=== PATIENT | male | born 1975 | race Caucasian/White ===

== ENCOUNTER → 2017-01-10 | Outpatient (CLI) | payer SELFPAY ==
--- NOTE | 2017-01-10 18:18 | PN ---
DATE OF SERVICE: 01/10/2017 This patient is a 41-year-old gentleman who has been followed in the sleep center for treatment of obstructive sleep apnea-hypopnea syndrome. 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 I discussed results of his diagnostic sleep study with the patient in detail. He has severe sleep apnea/hypopnea index of 32 with oxygen desaturation to 78%. Patient was started on treatment with CPAP, without auto-set regimen with a pressure between 5 and 13. Patient showed usage of the machine for 24 out of 30 nights for more than 4 hours. Average usage is 7 hours. Total usage is 25 out of 30 nights. Leak is 28 L/minute, which is borderline. Apnea-hypopnea index reading from the machine is only 1.5, which is in normal range. [place] Sleepiness Scale is 1. MEDICATIONS: 1. Januvia. 2. Simvastatin. 3. Lisinopril with hydrochlorothiazide. 4. ( ) 5. Glimepiride. 6. Baby aspirin. 7. Some vitamin supplements. During physical exam, patient in no distress. VITAL SIGNS: BP 108/72, HR 64, RR 16. Height 5 feet 11 inches. Weight 276. BMI 38.4. Temperature 98.0. Oxygen saturation at room air 97%. HEENT: PERRLA, EOMI. Evaluation of oropharynx showed tongue protrudes midline; moderately low position of soft palate. NECK: Supple. No JVD. Thyroid is not palpable. LUNGS: Clear to percussion and to auscultation. Good air exchange. No wheezing or rhonchi. HEART: S1, S2 regular. No murmurs, gallops or rubs. ABDOMEN: Obese. EXTREMITIES: No clubbing or cyanosis. BUSINESS SERVICES SPECIALIST SALES: Awake, alert, and oriented x3. Cranial nerves 2 to 7 intact. There is no fasciculation or atrophy noted. No focal deficits observed. IMPRESSION: 1. Severe obstructive sleep apnea-hypopnea syndrome by results of home sleep study from 03/08/16, under control with auto PAP with a range of pressure from 5 to 13 cm of water; average pressure is 11 cm of water. 2. Hypertension. 3. Hyperlipidemia. 4. Diabetes. 5. Obesity. 6. Status post tonsillectomy. PLAN: 1. Continue treatment with CPAP every night. 2. Losing weight. 3. Sleep hygiene with regular time in bed for at least 8 hours. 4. No driving if feeling any sleepiness. Patient is aware of civil and criminal liability for unsafe driving. 5. I would recommend maintenance of wakefulness test to objectively document patient's normal alertness during the day. Thank you very much for allowing me to participate in the management of your patient. Sincerely, Juan Hernandez MD, PhD, FAASM. Diplomat of [place] [employer], Sleep Medicine Board by [place] [employer], [place] [employer]
== END | disposition home or self-care (01) ==
LOC: SLEEP 13:22
PROVIDERS: ATTEND Internal Medicine
DX: G47.33 Obstructive sleep apnea (adult) (pediatric) (principal); I10 Essential (primary) hypertension; E78.5 Hyperlipidemia, unspecified; E11.9 Type 2 diabetes mellitus without complications; E66.9 Obesity, unspecified; Z90.89 Acquired absence of other organs; Z79.82 Long term (current) use of aspirin; Z79.899 Other long term (current) drug therapy

== ENCOUNTER → 2017-12-25 | Outpatient (CLI) | payer BC ==
--- NOTE | 2017-12-26 09:12 | MR ---
EXAMINATION TYPE: MR wrist LT wo con DATE OF EXAM: 12/25/2017 COMPARISON: NONE HISTORY: Pain Left Wrist x8 months Standard multiplanar, multisequence MRI departmental protocol Multiplanar, multisequence images of the left wrist were acquired. FINDINGS: Bone marrow signal is homogeneous without evidence for fracture or osseous lesion. Radiocarpal and intercarpal joint spaces are well-preserved. Triangular fibrocartilage complex is intact without evidence for tear or partial tear. Scapholunate ligament is intact. Intercarpal ligaments are also intact. Small ganglion cyst adjacent to the pisiform, measuring 6.4 mm. IMPRESSION: Small ganglion cyst otherwise unremarkable study.
== END | disposition home or self-care (01) ==
LOC: RADMRIMAIN 17:58
PROVIDERS: ATTEND Family Medicine
DX: M67.432 Ganglion, left wrist (principal)

== ENCOUNTER 2017-12-29 00:22 | Emergency (ER) | payer BC ==
[2017-12-29 00:33] VITALS: TEMP 97.4
--- NOTE | 2017-12-29 01:09 | ED ---
Back Pain HPI - General Chief Complaint: Back Pain/Injury Stated Complaint: back pain Time Seen by Provider: 12/29/17 00:59 Source: patient, RN notes reviewed Limitations: no limitations - History of Present Illness Initial Comments: This is a 42-year-old male who presents to the emergency department with chief complaint of low back injury. Patient states that at around 6 PM he was sitting in a chair pulling weeds. He states that he bent over and felt a sudden stretching along his low back. He states that he sat back up into the chair and still felt a stretching sensation. He states he was able to get up out of the chair and make it back into the house. He states that he then used a cane to ambulate to the bathroom. From there he attached a TENS unit and applied heat. This did not seem to help the back pain. He states he then laid on the ground with a pillow under his back and this did seem to help. He states that he was then unable to get up off the ground. He called EMS and was transported to the emergency department. Patient was given 10 mg of morphine while in the ambulance. Patient denies any saddle paresthesias or loss of bladder or bowel function. Denies numbness or tingling or radiation of pain down the legs. Denies fevers or chills, abdominal pain, nausea or vomiting. - Related Data Previous Rx's Medication Instructions Recorded Cyclobenzaprine [Flexeril] 10 mg PO TID #12 tab 12/29/17 Ibuprofen 600 mg PO Q6HR #30 tablet 12/29/17 Review of Systems ROS Statement: Those systems with pertinent positive or pertinent negative responses have been documented in the HPI. ROS Other: All systems not noted in ROS Statement are negative. Past Medical History Past Medical History: Diabetes Mellitus, Hypertension History of Any Multi-Drug Resistant Organisms: None Reported Past Surgical History: Tonsillectomy Past Psychological History: No Psychological Hx Reported Smoking Status: Former smoker Past Alcohol Use History: Occasional Past Drug Use History: None Reported General Exam - General Exam Comments Initial Comments: General: Awake and alert, well-developed; in no apparent distress. Patient appears uncomfortable and in significant pain. HEENT: Head atraumatic, normocephalic. Pupils are equal, round and reactive to light. Extraocular movements intact. Oropharynx moist without erythema or exudate. Neck: Supple. Normal ROM. Cardiovascular: Regular rate and rhythm. No murmurs, rubs or gallops. Chest symmetrical. Respiratory: Lungs clear to auscultation bilaterally. No wheezes, rales or rhonchi. Normal respiratory effort with no use of accessory muscles. Musculoskeletal: Normal ROM of spine. There is tenderness along the right lumbar paraspinal muscles. Sensation is intact. Pedal pulses are 2+ equal and palpable bilaterally. Skin: [place], warm and dry without rashes or lesions. Neurological: Alert and oriented x3. CN II-XII grossly intact. Speech is fluent and answers are appropriate. No focal neuro deficits. Psychiatric: Normal mood and affect. No overt signs of depression or anxiety noted. Limitations: no limitations Course Vital Signs 12/29/17 12/29/17 00:28 02:14 Temperature 97.4 F L Pulse Rate 75 72 Respiratory 19 16 Rate Blood Pressure 149/79 135/82 O2 Sat by Pulse 99 97 Oximetry Medical Decision Making - Medical Decision Making This is a 42-year-old male who presented to the emergency department chief complaint of low back injury. Patient states that he was leaning forward picking weeds earlier today. He felt a stretching burning sensation across his low back. He states that he has difficulty moving due to the pain. Denies saddle paresthesias or loss of bladder or bowel function. Denies numbness or tingling or radiation of pain in the legs. Patient is tender along the right lumbar paraspinal muscles. X-ray of the lumbar spine was obtained revealed abnormalities. Patient suffering from lumbar strain. He'll be started on NSAIDs and muscle relaxers. Findings and plan were discussed with patient. He is in agreement and voices understanding. All questions answered. - Radiology Data Radiology results: report reviewed, image reviewed X-ray lumbar spine impression: Normal lumbar spine. Disposition Clinical Impression: Strain of lumbar region Disposition: HOME SELF-CARE Condition: Good Instructions: Acute Low Back Pain (ED), Low Back Strain (ED), Lower Back Exercises (ED) Additional Instructions: Please take medications as prescribed. Please follow up with primary care provider within 1-2 days. Return to emergency department if symptoms should worsen or any concerns arise. Prescriptions: Cyclobenzaprine [Flexeril] 10 mg PO TID #12 tab Ibuprofen 600 mg PO Q6HR #30 tablet Is patient prescribed a controlled substance at d/c from ED?: No Referrals: Trupti Flowers DO [Primary Care Provider] - 1-2 days Time of Disposition: 03:11
--- NOTE | 2017-12-29 01:48 | XR ---
EXAMINATION TYPE: XR lumbar spine 2 or 3V DATE OF EXAM: 12/29/2017 COMPARISON: NONE HISTORY: Back pain TECHNIQUE: 3 views FINDINGS: Vertebra have normal spacing and alignment. Posterior elements are intact. Sacroiliac joint s appear normal. IMPRESSION: Normal lumbar spine.
[2017-12-29 02:15] VITALS: BP 135/82; PULSE 72; RESP 16
[2017-12-29] MEDS ORDERED: KETOROLAC 30 MG/ML 1 ML VIAL IVP STA (02:43)
[2017-12-29] MEDS ORDERED: ORPHENADRINE 30 MG/ML 2 ML VIAL IVP STA (02:43)
== END 2017-12-29 03:40 | disposition home or self-care (01) ==
LOC: EC 00:22
DX: S39.012A Strain of muscle, fascia and tendon of lower back, initial encounter (principal); Z87.891 Personal history of nicotine dependence; X50.1XXA Overexertion from prolonged static or awkward postures, initial encounter; Y93.H2 Activity, gardening and landscaping
CPT/HCPCS: 72100; 99283; 96374; 96375; J2360; J1885

== ENCOUNTER → 2020-09-02 | Outpatient (CLI) | payer OTHER ==
--- NOTE | 2020-09-03 10:41 | US ---
EXAMINATION TYPE: US scrotum with doppler. Grayscale and color Doppler Duplex imaging performed of tirso jacobsen scrotum. DATE OF EXAM: 09/02/2020 COMPARISON: NONE CLINICAL HISTORY: N50.812 left testicle pain. Pt states an "achy" feeling inferior left testicle EXAM MEASUREMENTS: TESTICLES: Right Testicle: 4.2 x 2.1 x 3.1 cm Left Testicle: 4.0 x 2.0 x 3.6 cm EPIDIDYMIS HEAD: Right Epididymis: 1.2 cm Left Epididymis: 1.3 cm Doppler performed to assess for testicular vascularity; bilateral color flow and waveforms are seen. Presence of hydroceles: No Presence of varicoceles: Yes, inferior to left testicle in area of pt's concern Testicular echotexture is homogenous and symmetric. IMPRESSION: Varicocele is noted on the left.
== END | disposition home or self-care (01) ==
LOC: RADUSWWP 16:51
PROVIDERS: ATTEND Family Medicine
DX: I86.1 Scrotal varices (principal)
CPT/HCPCS: 76870; 93975

== ENCOUNTER 2025-01-26 13:55 | Inpatient (IN) | payer OTHER ==
--- NOTE | 2025-01-26 14:31 | ED ---
Back Pain HPI - General Source: patient, family, RN notes reviewed Mode of arrival: wheelchair Limitations: no limitations <Josee Moncada - Last Filed: 01/26/25 14:33> <Tao Graves - Last Filed: 01/26/25 17:26> - General Stated Complaint: Spine pain, back pain, Leg pain L Time Seen by Provider: 01/26/25 14:28 - History of Present Illness Initial Comments: Quick note: 50-year-old male presented the ER for evaluation of back pain. Mikel rasmussen is following up with Dr. Cobb for back pain. Patient states on October 13, 2024 patient had an injury at work. He is currently working under a work comp case. Over the past couple of weeks he has had increase in pain. Patient admits to saddle paresthesias and scrotal pain. He states it feels like they are "sleeping". He states laying flat improves pain. Sitting or standing is extremely uncomfortable. Patient having difficulty ambulating. Patient admits to "pain sweats". Denies history of IV drug abuse. Patient denies any urinary or bowel incontinence/retention.Patient sent by orthopedics for further evaluation. Recent MRI showing severe disc bulge per . (Josee Moncada) Dictation was produced using [employer] dictation software. please excuse any grammatical, word or spelling errors. Chief Complaint: 50-year-old male with acute on chronic back pain History of Present Illness: Patient 50-year-old male presents emergency department for acute on chronic back pain suffered back injury back in October. Since then has been progressively getting worse. Has had CT and MRIs with soft tissue injuries. Went to Ortho appointment today had an x-ray and told to come to the ER. Patient denies any saddle anesthesia. States that whenever she stands he has radiating back pain down bilateral legs. The ROS documented in this emergency department record has been reviewed and confirmed by me. Those systems with pertinent positive or negative responses have been documented in the HPI. All other systems are other negative and/or noncontributory. (Tao Graves) - Related Data Allergies Allergy/AdvReac Type Severity Reaction Status Date / Time walnut Allergy Anaphylaxis Verified 01/26/25 17:25 Review of Systems ROS Other: All systems not noted in ROS Statement are negative. <Josee Moncada - Last Filed: 01/26/25 14:33> ROS Other: All systems not noted in ROS Statement are negative. <Tao Graves - Last Filed: 01/26/25 17:26> ROS Statement: Those systems with pertinent positive or pertinent negative responses have been documented in the HPI. Past Medical History Past Medical History: Diabetes Mellitus, Hypertension History of Any Multi-Drug Resistant Organisms: None Reported Past Surgical History: Tonsillectomy Past Psychological History: No Psychological Hx Reported Past Alcohol Use History: Occasional Past Drug Use History: None Reported <Josee Moncada - Last Filed: 01/26/25 14:33> General Exam <Josee Moncada - Last Filed: 01/26/25 14:33> <Tao Graves - Last Filed: 01/26/25 17:26> - General Exam Comments Initial Comments: Visual Physical Exam Vital signs reviewed General: Anxious, in pain no signs of acute respiratory distress. Head: Normocephalic, atraumatic Eyes: PERRLA, EOMI ENT: Airway patent Chest: Nonlabored breathing Skin: No visual rash, normal skin tone Neuro: Alert and oriented 3 Musculoskeletal: No gross abnormalities (Josee Moncada) PHYSICAL EXAM: General Impression: Alert and oriented x3, not in acute distress HEENT: Normocephalic atraumatic, extra-ocular movements intact, pupils equal and reactive to light bilaterally, mucous membranes moist. Cardiovascular: Heart regular rate and rhythm Chest: Able to complete full sentences, no retractions, no tachypnea Abdomen: abdomen soft, non-tender, non-distended, no organomegaly Musculoskeletal: Pulses present and equal in all extremities, no peripheral edema Motor: no focal deficits noted Neurological: CN II-XII grossly intact, no focal motor or sensory deficits noted Skin: Intact with no visualized rashes Psych: Normal affect and mood (Tao Graves) Course Vital Signs 01/26/25 01/26/25 14:28 17:05 Temperature 98.2 F 98 F Pulse Rate 120 H 77 Respiratory 22 16 Rate Blood Pressure 115/87 133/94 O2 Sat by Pulse 96 96 Oximetry Medical Decision Making <Josee Moncada - Last Filed: 01/26/25 14:33> - Lab Data Result diagrams: 01/26/25 14:58 01/26/25 14:58 <Tao Graves - Last Filed: 01/26/25 17:26> - Medical Decision Making I performed the quick note portion of this chart. Electronically signed by Josee Moncada PA-C (Josee Moncada) Was pt. sent in by a medical professional or institution ([facility], ECMO SPECIALIST, urgent care, hospital, or prison...) When possible be specific @ -No Did you speak to anyone other than the patient for history (EMS, parent, family, police, friend...)? What history was obtained from this source @ -No Did you review nursing and triage notes (agree or disagree)? Why? @ -I reviewed and agree with nursing and triage notes Were old charts reviewed (outside hosp., previous admission, EMS record, old EKG, old radiological studies, urgent care reports/EKG's, prison records)? Report findings @ -No old charts were reviewed Differential Diagnosis (chest pain, altered mental status, abdominal pain women, abdominal pain men, vaginal bleeding, musculoskeletal, weakness, fever, dyspnea, syncope, headache, dizziness, GI bleed, back pain, seizure, CVA, palpatations, mental health)? @ -Differential Back Pain: Strain, zoster, cauda equina syndrome, epidural abscess, vertebral osteomyelitis, discitis, fracture, subluxation, disc herniation, DJD, spinal stenosis, dissection, AAA, pancreatitis, peptic ulcer disease, pyelonephritis, kidney stone, this is not meant to be an all-inclusive list. EKG interpreted by me (3pts min.). @ -None done X-rays interpreted by me (1pt min.). @ -None done CT interpreted by me (1pt min.). @ -None done U/S interpreted by me (1pt. min.). @ -None done What testing was considered but not performed or refused? (CT, X-rays, U/S, labs)? Why? @ -None What meds were considered but not given or refused? Why? @ -None Was smoking cessation discussed for >3mins.? @ -No Were there social determinants of health that impacted care today? How? (Homelessness, low income, unemployed, alcoholism, drug addiction, transportation, low edu. Level, literacy, decrease access to med. care, fdc, rehab)? @ -No Was there de-escalation of care discussed even if they declined (Discuss DNR or withdrawal of care, Hospice)? DNR status @ -No What co-morbidities impacted this encounter? (DM, HTN, Smoking, COPD, CAD, Cancer, CVA, ARF, Chemo, Hep., AIDS, mental health diagnosis, sleep apnea, morbid obesity)? @ -None Was patient admitted / discharged? Hospital course, mention meds given and route, prescriptions, significant lab abnormalities, going to OR and other pertinent info. @ -50-year-old male sent in from Ortho clinic for concerns of back pain. Patient initially injured his back in October has been having back pain ever since. He had MRI earlier this month that showed abnormal disc bulge. According to nurse practitioner that saw him at [facility] she sent him to the ER for urgent evaluation due to pain rating to the scrotum and some constipation. He did however have a bowel movement within the last 48 hours. Does not have any retention or saddle anesthesia. Vital signs stable. Patient well-appearing at rest on the stretcher. [facility] They are agreeable to evaluate patient however they requested patient be admitted to medicine. Patient is agreeable with this plan. Case discussed with hospitalist for admission. Did you discuss the management of the patient with other professionals (professionals i.e. , PA, ECMO SPECIALIST, lab, RT, psych nurse, social media director, recovery unit operator, teacher, custodial officer, corrections caseworker)? Give summary @ -See above Was critical care preformed (if so, how long)? @ -No Undiagnosed new problem with uncertain prognosis? @ -No Drug Therapy requiring intensive monitoring for toxicity (Heparin, Nitro, Insulin, Cardizem)? @ -No Were any procedures done? @ -No Diagnosis/symptom? Acute, or Chronic, or Acute on Chronic? Uncomplicated (without systemic symptoms) or Complicated (systemic symptoms)? @ -Acute on chronic back pain Side effects of treatment? @ -No Exacerbation, Progression, or Severe Exacerbation? @ -No Poses a threat to life or bodily function? How? (Chest pain, [place], ID, pneumonia, PE, COPD, DKA, ARF, appy, cholecystitis, CVA, Diverticulitis, Homicidal, Suicidal, threat to staff... and all critical care pts) @ -yes (Tao Graves) - Lab Data Lab Results 01/26/25 01/26/25 Range/Units 14:58 14:58 WBC 8.40 (4.50-10.00) 10*3/uL RBC 5.19 (4.40-5.60) 10*6/uL Hgb 15.6 (13.0-17.0) g/dL Hct 46.0 (39.6-50.0) % MCV 88.6 (80.0-97.0) fL MCH 30.1 (27.0-32.0) pg MCHC 33.9 (32.0-37.0) g/dL Plt Count 342 (140-440) 10*3/uL MPV 8.0 L (9.5-12.2) fL Immature Gran % (Auto) 0.4 % Neutrophils % 71.5 % Lymphocytes % 18.7 % Monocytes % 7.9 % Eosinophils % 1.1 % Basophils % 0.4 % Immature Gran # 0.03 (0.00-0.04) 10*3/uL Neutrophils # 6.02 (1.80-7.70) 10*3/uL Lymphocytes # 1.57 (0.90-5.00) 10*3/uL Monocytes # 0.66 (0.20-1.00) 10*3/uL Eosinophils # 0.09 (0.04-0.35) 10*3/uL Basophils # 0.03 (0.00-0.10) 10*3/uL Sodium 137 (137-145) mmol/L Potassium 3.7 (3.5-5.1) mmol/L Chloride 98 (98-107) mmol/L Carbon Dioxide 24 (22-30) mmol/L Anion Gap 15 mmol/L BUN 13 (9-20) mg/dL Creatinine 0.71 (0.66-1.25) mg/dL Est GFR (CKD-EPI)AfAm >90 (>60 ml/min/1.73 sqM) Est GFR (CKD-EPI)NonAf >90 (>60 ml/min/1.73 sqM) Glucose 134 H (74-99) mg/dL Calcium 11.1 H (8.4-10.2) mg/dL Total Bilirubin 1.0 (0.2-1.3) mg/dL AST 40 (17-59) U/L ALT 62 H (4-49) U/L Alkaline Phosphatase 75 (38-126) U/L Total Protein 7.2 (6.3-8.2) g/dL Albumin 4.6 (3.5-5.0) g/dL Disposition <Josee Moncada - Last Filed: 01/26/25 14:33> Decision Time: 16:45 <Tao Graves - Last Filed: 01/26/25 17:26> Clinical Impression: Back pain Disposition: ADMITTED IP TO THIS [facility] Condition: Fair Referrals: Trupti Flowers DO [Primary Care Provider] - 1-2 days
[2025-01-26 15:07] LABS: Basophils # (A) 0.03 10*3/uL (0.00-0.10); Basophils % (A) 0.4 %; Eosinophils # (A) 0.09 10*3/uL (0.04-0.35); Eosinophils % (A) 1.1 %; HGB 15.6 g/dL (13.0-17.0); Lymphocytes # (A) 1.57 10*3/uL (0.90-5.00); Lymphocytes % (A) 18.7 %; MCH 30.1 pg (27.0-32.0); MCHC 33.9 g/dL (32.0-37.0); MCV 88.6 fL (80.0-97.0); Monocytes # (A) 0.66 10*3/uL (0.20-1.00); Monocytes % (A) 7.9 %; Neutrophils # (A) 6.02 10*3/uL (1.80-7.70); Neutrophils % (A) 71.5 %; Platelet Count 342 10*3/uL (140-440); RBC 5.19 10*6/uL (4.40-5.60); RDW 13.8 % (11.5-14.5)
[2025-01-26 15:37] LABS: ALT 62 U/L (4-49); AST 40 U/L (17-59); African American GFR (CKD) >90 (>60 ml/min/1.73 sqM); Albumin 4.6 g/dL (3.5-5.0); Alkaline Phosphatase 75 U/L (38-126); Anion Gap 15 mmol/L; Blood Urea Nitrogen 13 mg/dL (9-20); Calcium 11.1 mg/dL (8.4-10.2); Carbon Dioxide 24 mmol/L (22-30); Chloride 98 mmol/L (98-107); Glucose 134 mg/dL (74-99); Non-African American GFR(CKD) >90 (>60 ml/min/1.73 sqM); Potassium 3.7 mmol/L (3.5-5.1); Sodium 137 mmol/L (137-145); Total Protein 7.2 g/dL (6.3-8.2)
[2025-01-26] MEDS ORDERED: NALOXONE 0.4 MG/ML 1 ML VIAL IV PRN (17:22)
[2025-01-26] MEDS: SODIUM CHLORIDE 0.9% 1,000 ML IV SCH (17:43)
[2025-01-26] MEDS: BACLOFEN 10 MG TAB PO PRN (18:43)
[2025-01-26] MEDS: GABAPENTIN 300 MG CAP PO PRN (23:32)
[2025-01-27 01:09] LABS: Glucose,Whole Blood 155 mg/dL (70-110)
[2025-01-27] MEDS: MORPHINE SULFATE 4 MG/ML SYRINGE IV PRN (05:24)
[2025-01-27] MEDS: ATORVASTATIN 10 MG TAB PO SCH (08:20)
[2025-01-27] MEDS: DULoxetine HCL 60 MG CAPSULE.DR PO SCH (08:20)
[2025-01-27] MEDS: ASPIRIN 81 MG PO SCH (08:20)
[2025-01-27] MEDS: GLIMEPIRIDE 4 MG TAB PO SCH (08:57)
[2025-01-27] MEDS: LISINOPRIL-HCTZ 10-12.5 MG 1 EACH TAB PO SCH (08:57)
[2025-01-27] MEDS: PIOGLITAZONE 30 MG TAB PO SCH (08:58)
[2025-01-27] MEDS ORDERED: LISINOPRIL-HCTZ 20-25 MG 1 EACH TAB PO SCH (09:00)
[2025-01-27] MEDS ORDERED: KETOROLAC 15 MG/ML 1 ML VIAL IVP PRN (12:32)
--- NOTE | 2025-01-27 12:52 | P.HPIM ---
History of Present Illness Patient is 50-year-old male came in with severe back pain in the lower back in the lumbosacral area with crampy and tingling numbness radiating to the left buttock and posterior thigh. Patient denies any weakness patient is unable to ambulate. Patient had an MRI which showed disc bulge as per the . Patient was evaluated by final surgeon Dr. Cobb and patient apparently will be going for surgery tomorrow for lower back pain. Patient is presently on morphine which will be continued. Patient is mildly hypotensive does use lisinopril hydrochlorothiazide as an outpatient which will be held. 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 REVIEW OF SYSTEMS: All other systems are negative except those mentioned in the HPI PHYSICAL EXAMINATION: GENERAL: The patient is alert and oriented x3, not in any acute distress. Well developed, well nourished. HEENT: Pupils are round and equally reacting to light. EOMI. No scleral icterus. No conjunctival pallor. Normocephalic, atraumatic. No pharyngeal erythema. No thyromegaly. CARDIOVASCULAR: S1 and S2 present. No murmurs, rubs, or gallops. PULMONARY: Chest is clear to auscultation, no wheezing or crackles. ABDOMEN: Soft, nontender, nondistended, normoactive bowel sounds. No palpable organomegaly. MUSCULOSKELETAL: No joint swelling or deformity. Back pain deferred to orthopedic surgery EXTREMITIES: No cyanosis, clubbing, or pedal edema. NEUROLOGICAL: Gross neurological examination did not reveal any focal deficits. SKIN: No rashes. Assessment and plan -Chronic back pain: I do not have the MRI reports at this time patient appears to have severe degenerative disc disease. Patient will undergo surgery tomorrow - Hypertension patient is expected to have low blood pressures hold off on antihypertensive medications at this time - Type 2 diabetes mellitus patient will be started on sliding scale insulin holding off any oral hypoglycemic agents at this time - Depression DVT prophylaxis: Patient will need DVT prophylaxis pharmacologically we will start him on Lovenox or subcutaneous heparin after surgery. Past Medical History Past Medical History: Diabetes Mellitus, Hypertension History of Any Multi-Drug Resistant Organisms: None Reported Past Surgical History: Tonsillectomy Past Psychological History: No Psychological Hx Reported Past Alcohol Use History: Occasional Past Drug Use History: None Reported Medications and Allergies Home Medications Medication Instructions Recorded Confirmed Type Aspirin EC [Ecotrin Low Dose] 81 mg PO DAILY 01/26/25 01/26/25 History Baclofen [Lioresal] 20 mg PO BID PRN 01/26/25 01/26/25 History DULoxetine HCL [Cymbalta] 60 mg PO DAILY 01/26/25 01/26/25 History Dulaglutide [Trulicity] 1.5 mg SQ SA 01/26/25 01/26/25 History Gabapentin 300 mg PO BID PRN 01/26/25 01/26/25 History HYDROcodone/APAP 7.5-325MG [[place] 1 - 2 tab PO Q6H PRN 01/26/25 01/26/25 History 7.5-325] Lisinopril-Hctz 20-25 mg 1 tab PO DAILY 01/26/25 01/26/25 History [Zestoretic 20-25] Mv-Min/Folic/K1/Lycopen/Lutein 1 tab PO DAILY 01/26/25 01/26/25 History [Centrum Silver Men Tablet] Pioglitazone HCl/Glimepiride 1 tab PO DAILY 01/26/25 01/26/25 History [Pioglitazone-Glimepiride 30-4] Simvastatin [Zocor] 20 mg PO DAILY 01/26/25 01/26/25 History Vitamin B Complex 1 cap PO DAILY 01/26/25 01/26/25 History Allergies Allergy/AdvReac Type Severity Reaction Status Date / Time walnut Allergy Anaphylaxis Verified 01/26/25 17:25 Physical Exam Vitals: Vital Signs Temp Pulse Resp BP Pulse Ox 01/27/25 12:00 98.2 F 84 18 115/76 98 01/27/25 08:01 98.1 F 93 117/72 98 01/27/25 05:27 98.0 F 76 20 114/77 99 01/26/25 23:35 98.1 F 95 18 126/90 96 01/26/25 18:40 98 F 91 18 121/70 98 01/26/25 17:05 98 F 77 16 133/94 96 01/26/25 14:28 98.2 F 120 H 22 115/87 96 Intake and Output 01/26/25 01/27/25 01/27/25 22:59 06:59 14:59 Output Total 5 Balance -5 Output: Post Void Residual 5 Results CBC & Chem 7: 01/26/25 14:58 01/26/25 14:58 Labs: Abnormal Lab Results - Last 24 Hours (Table) 01/26/25 01/26/25 01/27/25 Range/Units 14:58 14:58 01:07 MPV 8.0 L (9.5-12.2) fL Glucose 134 H (74-99) mg/dL POC Glucose (mg/dL) 155 H (70-110) mg/dL Calcium 11.1 H (8.4-10.2) mg/dL ALT 62 H (4-49) U/L
[2025-01-27] MEDS: SENNOSIDES-DOCUSATE SODIUM 1 EACH TAB PO SCH (13:14)
--- NOTE | 2025-01-27 13:49 | P.HPOR ---
History of Present Illness H&P Date: 01/27/25 Chief Complaint: back pain; LLE pain Patient is a 50-year-old male who presents to the ER as a transfer from Dr. Cobb office for evaluation of back pain. Patient states on October 13, 2024 he had an injury at work and is currently under work comp case. Patient states over the past month he has had increased pain in the low back with radiation down the left lower extremity extending from his left buttocks all the way into the left foot. Patient also admits having saddle anesthesia including scrotal pain. Patient states standing up straight or sitting up exacerbates the pain and lying down flat alleviates some of this pain. Patient denies any urinary or bowel incontinence. MRI of the lumbar spine does reveal disc herniation on the left side at L5-S1 as well as degenerative disc disease at this level. Patient states over the past 1 month the pain in the left lower extremity has worsened and he is having issues with daily activities. Patient denies any falls/traumas. Past Medical History Past Medical History: Diabetes Mellitus, Hypertension History of Any Multi-Drug Resistant Organisms: None Reported Past Surgical History: Tonsillectomy Past Psychological History: No Psychological Hx Reported Past Alcohol Use History: Occasional Past Drug Use History: None Reported Medications and Allergies Home Medications Medication Instructions Recorded Confirmed Type Aspirin EC [Ecotrin Low Dose] 81 mg PO DAILY 01/26/25 01/26/25 History Baclofen [Lioresal] 20 mg PO BID PRN 01/26/25 01/26/25 History DULoxetine HCL [Cymbalta] 60 mg PO DAILY 01/26/25 01/26/25 History Dulaglutide [Trulicity] 1.5 mg SQ SA 01/26/25 01/26/25 History Gabapentin 300 mg PO BID PRN 01/26/25 01/26/25 History HYDROcodone/APAP 7.5-325MG [[place] 1 - 2 tab PO Q6H PRN 01/26/25 01/26/25 History 7.5-325] Lisinopril-Hctz 20-25 mg 1 tab PO DAILY 01/26/25 01/26/25 History [Zestoretic 20-25] Mv-Min/Folic/K1/Lycopen/Lutein 1 tab PO DAILY 01/26/25 01/26/25 History [Centrum Silver Men Tablet] Pioglitazone HCl/Glimepiride 1 tab PO DAILY 01/26/25 01/26/25 History [Pioglitazone-Glimepiride 30-4] Simvastatin [Zocor] 20 mg PO DAILY 01/26/25 01/26/25 History Vitamin B Complex 1 cap PO DAILY 01/26/25 01/26/25 History Allergies Allergy/AdvReac Type Severity Reaction Status Date / Time walnut Allergy Anaphylaxis Verified 01/26/25 17:25 Physical Examination Inspection: Negative for any open fractures, significant erythema/ecchymosis or open wounds. Sensation: Altered sensation along the L5-S1 dermatome on the left lower extremity. Numbness along the left side of the scrotum. Sensation is equal, symmetric, by intact throughout the rest of the upper and lower extremities. Palpation: Moderate tenderness to patient over the left SI joint radiating into the left hip and extending down the posterior left lower extremity along the L5- S1 dermatome. Nontender on rest exam. Range of motion: Patient does have similar range of motion left lower extremity and hip and knees secondary referred pain to the low back. Full range of motion throughout the right lower extremity and bilateral upper extremities on exam. Motor: 4-/5 in resisted flexion/tension of the left hip and left knee. 4+/5 in right lower extremity and bilateral upper extremities. Neurovascular: Radial pulses intact, 2+ bilaterally. Cap refill under 3 seconds in digits of upper extremities. Special test: Negative Adiel bilaterally. Negative clonus bilaterally. Negative Homans bilaterally. Results - Labs Labs: Abnormal Lab Results - Last 24 Hours (Table) 01/26/25 01/26/25 01/27/25 Range/Units 14:58 14:58 01:07 MPV 8.0 L (9.5-12.2) fL Glucose 134 H (74-99) mg/dL POC Glucose (mg/dL) 155 H (70-110) mg/dL Calcium 11.1 H (8.4-10.2) mg/dL ALT 62 H (4-49) U/L H & H 01/26/25 Range/Units 14:58 Hgb 15.6 (13.0-17.0) g/dL Hct 46.0 (39.6-50.0) % Result Diagrams: 01/26/25 14:58 01/26/25 14:58 - Diagnostic results Lumbar MRI with/without contrast: report reviewed, image reviewed (MRI imaging of the lumbar spine has been reviewed. There is evident disc herniation at L5- S1 as well as lumbar spondylosis and degenerative disc disease at this level.) Assessment and Plan Assessment: 1. Left lower extremity radiculopathy; low back pain; L5-S1 disc herniation, left side; degenerative disc disease; lumbar spondylosis Plan: 1. Left lower extremity radiculopathy; low back pain; L5-S1 disc herniation, left side; degenerative disc disease; lumbar spondylosis - MRI imaging of the lumbar spine has been reviewed. There is evident disc herniation at L5-S1 as well as lumbar spondylosis and degenerative disc disease at this level. I did discuss the findings of the imaging with patient and family at bedside. I then did discuss the findings of the exam and imaging with my attending, Dr. Arnaldo zaman. At this time we are recommending orthopedic surgical intervention in the form of left-sided L5-S1 MIS TLIF. Patient and family were agreeable with this plan at bedside. Patient to be n.p.o. at midnight tonight. Pain medication as needed. We will continue to follow patient during stay in the hospital. Surgery has been scheduled for tomorrow, , 01/28/2025. 2. Appreciate medical management 3. Pain management -[place]; gabapentin; baclofen 4. DVT prophylaxis -mechanical 5. GI prophylaxis -senna 6. PT/OT -weightbearing as tolerated with walker and assistance as needed 7. Encourage incentive spirometer use Time with Patient: Less than 30
[2025-01-27] MEDS: INSULIN LISPRO (HumaLOG) 100 UNIT/ML 10 mL VL SQ SCH (17:26)
[2025-01-27 17:29] LABS: Glucose,Whole Blood 104 mg/dL (70-110)
[2025-01-27 20:40] LABS: Glucose,Whole Blood 127 mg/dL (70-110)
[2025-01-28] MEDS: HYDROcodone/APAP 10-325MG 1 EACH TAB PO PRN (00:12)
[2025-01-28 06:19] LABS: Glucose,Whole Blood 112 mg/dL (70-110)
[2025-01-28] MEDS ORDERED: TRANEXAMIC 1,000 MG/100ML-NACL 1,000 MG in SALINE 1 100ML.BAG IVPB PRN (10:56)
[2025-01-28 11:11] LABS: Glucose,Whole Blood 151 mg/dL (70-110)
[2025-01-28 15:38] LABS: Glucose,Whole Blood 90 mg/dL (70-110)
[2025-01-28] MEDS: IV FLUID CONTINUATION 1,000 ML IV ONE ×2 (16:39→17:00)
[2025-01-28 16:55] LABS: Glucose,Whole Blood 91 mg/dL (70-110)
[2025-01-28] MEDS: DEXAMETHASONE SOD PHOSPHATE 4 MG/ML 1 ML VIAL IVP STA (17:08)
[2025-01-28] MEDS: ONDANSETRON 4 MG/2 ML VIAL IVP PRN (17:10)
[2025-01-28] MEDS: LACTATED RINGERS 1,000 ML BAG IV STA (17:11)
[2025-01-28] MEDS ORDERED: PHENYLEPHRINE 10 MG/ML VIAL ONE (18:00)
[2025-01-28] MEDS ORDERED: SUCCINYLCHOLINE CHLORIDE 200 MG/10 ML VIAL IV ONE (18:00)
[2025-01-28] MEDS ORDERED: NEOSTIGMINE 1 MG/ML 10 ML VIAL ONE (18:00)
[2025-01-28] MEDS ORDERED: MIDAZOLAM 2 MG/2 ML VIAL ONE (18:00)
[2025-01-28] MEDS ORDERED: ROCURONIUM 10 MG/ML (5 ML VIAL) IV ONE (18:00)
[2025-01-28] MEDS ORDERED: TRANEXAMIC 1,000 MG/100ML-NACL PREMIX BAG ONE (18:00)
[2025-01-28] MEDS ORDERED: KETAMINE HCL IN 0.9 % NACL 50 MG/5 ML SYRINGE ONE (18:00)
[2025-01-28] MEDS ORDERED: HYDROmorphone (PF) 1 MG/ML ONE (18:00)
[2025-01-28] MEDS ORDERED: fentaNYL (PF) 50 MCG/ML 2 ML AMP ONE (18:00)
[2025-01-28] MEDS ORDERED: PROPOFOL 10 MG/ML 20 ML VIAL IV ONE (18:00)
[2025-01-28] MEDS ORDERED: GLYCOPYRROLATE 0.2 MG/ML 2 ML VIAL ONE (18:00)
[2025-01-28] MEDS ORDERED: LIDOCAINE 1% INJ 10MG/ML (20 ML MDV) ONE (18:00)
[2025-01-28] MEDS: ceFAZolin 3 GM in SODIUM CHLORIDE 0.9% 100 ML IVPB PRN (18:02)
[2025-01-28] MEDS: THROMBIN (BOVINE) 5,000 UNIT VIAL TOPICAL ONE (18:45)
[2025-01-28] MEDS: BUPIVACAINE (PF) 0.5% 30 ML VIAL SQ ONE (19:38)
[2025-01-28] MEDS: LIDOCAINE 2%-EPI 1:100,000 20 ML VIAL SQ ONE (19:39)
[2025-01-28] MEDS: LACTATED RINGERS 1,000 ML IV ONE (19:49)
[2025-01-28] MEDS ORDERED: MAGNESIUM HYDROXIDE 2,400 MG/30 ML CUP PO PRN (20:29)
[2025-01-28] MEDS ORDERED: HYDROcodone/APAP 5-325MG 1 EACH TAB PO PRN (20:29)
--- NOTE | 2025-01-28 20:30 | P.OP ---
Date of Procedure: 01/28/25 Preoperative Diagnosis: 1. L5-S1 MASSIVE HNP WITH SEVERE STENOSIS 2. IMPENDING CAUDA EQUINA 3. SADDLE ANESTHESIA 4. LLE RADICULOPATY, SEVERE 5. LE WEAKNESS Postoperative Diagnosis: 1. L5-S1 MASSIVE HNP WITH SEVERE STENOSIS 2. IMPENDING CAUDA EQUINA 3. SADDLE ANESTHESIA 4. LLE RADICULOPATY, SEVERE 5. LE WEAKNESS Procedure(s) Performed: 1. L5-S1 POSTEROLATERAL AND INTERBODY FUSION 2. L5-S1 SEGMENTAL INSTRUMENTATION 3. L5-S1 LAMINECTOMY, COMPLETED FACETECTOMY AND FORAMINOTOMY FOR NEURAL DECOMPRESSION AND CAGE PLACEMENT 4. L5-S1 INSERTION OF BIOMECHANICAL DEVICE, CAGE x1 5. USE OF Equiom NAVIGATION FOR SCREW PLACEMENT USE OF IONM ALL SCREWS TESTING > 20 mA USE OF IO MICROSCOPE Implants: DELORES EVERST RODS AND SCREWS GLOBUS SABLE CAGE LONG, 12 MM, 9-16 8 DEG ARTHROCELL, ALLOCELL, CONTOUR, AUTOGRAFT, ALLOGRAFT Anesthesia: GETA Surgeon: Kiel Cobb Ferris Wheel Operator #1: Josue Justice (was present and assisted with all aspects of the case from position to dressing placement) Estimated Blood Loss (ml): 150 IV fluids (ml): 1,200 Urine output (ml): 250 Pathology: none sent Condition: stable Disposition: PACU Indications for Procedure: Herb Domingo, a 50-year-old male, presented to the Emergency Department with severe low back pain, lower extremity tension, scrotal pain, and paresthesias in the saddle region. He was subsequently admitted to the medicine service. MRI revealed a large L5-S1 foraminal and central disc herniation causing severe stenosis, nerve root impingement, encroachment, and displacement. The patient also exhibits severe degenerative changes at L5-S1 with Modic endplate changes and degenerative disc disease. Given the severity of his condition and progressive neurologic deterioration, I have recommended an urgent L5-S1 decompression with posterior lateral interbody fusion using a minimally invasive approach from the left side. The patient has been informed of the risks and benefits and has agreed to proceed with the surgery. Description of Procedure: L5-S1 MIS PLIBF BALDO (L) The patient was seen and examined in the preoperative area. All preoperative protocols were followed. Informed consent was obtained, risks and benefits of the procedure were discussed at length. Risks including bleeding infection damage to the surrounding tissue and risk of reoperation were discussed with the patient. Risk of anesthesia up to and including was discussed with the patient. These are outlined in the risk review. They were willing to accept these risks and all the risks of surgery. The patient was given a weight-based dose of antibiotics in the form of 2 g Ancef. The patient was seen and evaluated by the anesthesia team who deemed them fit for surgery. The site was marked, the patient was willing to proceed with the procedure. The patient was transferred to the operative suite by the Department of anesthesia. They were then drifted off to sleep by the department anesthesia and GETA was performed. The patient tolerated this well. Almendarez catheter was placed by nursing staff, a-traumatically. Once confirmation of lines and ventilation the patient was transferred to a prone Vladislav table very carefully. All bony prominences including wrists, elbows, axilla, chest, hips, and thighs, and feet were padded very well. Special attention was paid to the genitalia, and these were padded accordingly. SCDs were placed on bilateral lower extremities and were connected. Arms were well padded and placed on arm boards up and out in the 90/90 position. Once in position, again we confirmed good ventilation capabilities and that lines were running appropriately. The patients Lumbar spine was then exposed. 1010s were placed outlining the incision site. Standard alcohol was used to clean the incision site and allowed to dry. C-arm was used to needle localize the pedicles at L5-S1 and bio-margaret the patient and confirm level for incision which was marked with a skin marker. Operative briefing was performed with all teams and everyone in agreement to proceed. The patient was then prepped and draped in a normal sterile fashion. Timeout was then performed, and all parties agreed with the procedure to be performed. Skin nicks were made over the PSIS on the right side and pins placed for the X[employer]ium Navigation tracker. This was secured and then a 3D Zhiem spin was registered. Once registered it was tested and confirmed to be accurate. We then targeted pedicles b/l at L5 and S1 using navigated Jamshidi and drill guide. Wires were then placed in their void and confirmed to be in good position on AP and Lateral. Contralateral right side screws were then placed over wires and tested and they all tested above 20 mA. Attention was then turned to interbody fusion at L5-S1. The tubular retractor system was placed at the interspace of L5-S1 using a biplanar c arm. Once in position and dilated up to 26mm tube it was locked to the bed and confirmed in good position. A microscope was then brought in for visualization. Limited myomectomy was performed and laminectomy, complete facetectomy and foraminotomy performed at L5-S1 using high speed klaus and Kerrison rongure. The ligamentum was removed and the dural sac decompressed. Exiting and traversing roots visualized and decompressed. Neural elements were then protected, and disc space accessed with an osteotome. Sequential shaving then done under lateral imaging and complete discectomy performed using pedro, pituitary and curette. Once good bleeding endplates accomplished and good height jewish with trials, a combination of autograft, allograft and synthetic placed anterior in the disc space. The cage was then selected and impacted into place under lateral imaging. The cage was then expanded restoring height, lordosis and alignment. The cage was backfilled with bone graft through a funnel. The line tender was removed and the area inspected. Good cage placement, stable cage and no injuries. The area was irrigated copiously, and meticulous hemostasis achieved. The tubular retractor was then removed under direct visualization. Screws were then selected and placed over the previously placed wires on the ipsilateral side. This was done in the fashion described above. Screws were then tested, and all tested above 20 mA. Shells were then placed on the tabs. Rafal length was then measured, and rods selected. They were then placed through the MIS tabs, subfascial. These were then locked into place with set screws and final tightened. Rafal holders removed and images taken showing good placement of rods, good lordosis and jewish of height. Tabs were broken off. Wounds were then copiously irrigated with NSS. [employer] used for TP decortication and mixture of MagnatOs, allograft and autograft packed posterolateral. Facia was then closed with 0 Vircyl. Deep subq closed with 0 Vicryl. Superficial subq closed with 2-0 Vicryl and skin with ashleigh. Wound edges approximated very well. The wound was then cleaned with alcohol and dried. Wounds dressed in Optifoam dressings. The patient was then transferred off the table back to their hospital bed a-trau matically. They were extubated by the department of anesthesia. They were then transferred to PACU in stable condition having tolerated the procedure with no complications.
[2025-01-28] MEDS: HYDROmorphone 0.5 MG/0.5 ML SYRINGE IVP STA (20:47)
[2025-01-28] MEDS: HYDROmorphone 0.5 MG/0.5 ML SYRINGE IVP PRN (21:01)
[2025-01-28] MEDS: MIDAZOLAM 2 MG/2 ML VIAL IV ONE (21:03)
[2025-01-28 21:13] LABS: Glucose,Whole Blood 210 mg/dL (70-110)
--- NOTE | 2025-01-28 21:22 | XR ---
EXAMINATION TYPE: XR lumbar spine 2 or 3V, FL guidance operating room Intraoperative/procedural fluor oscopic services were provided. CLINICAL INDICATION:Male, 50 years old with history of MIN INVASIVE LUMBAR FUSION; , [facility] FINDINGS: Images are demonstrated within the document section on PACS. Postsurgical changes from minimally inva sive lumbar fusion with interval placement of posterior approach bilateral pedicular screws and rods with disc fusion cage at L5-S1. Hardware appears intact with appropriate alignment. No radiographic e vidence for complication. Total fluoroscopy time is 78 seconds. DAP: 10.563 Gycm2 Please see the operative/procedural note for further details. [facility], , 01/28/2025 9:19 PM
[2025-01-28] MEDS: LACTATED RINGERS 1,000 ML IV SCH (21:56)
[2025-01-28 22:08] LABS: Glucose,Whole Blood 209 mg/dL (70-110)
--- NOTE | 2025-01-29 00:15 | CT ---
EXAMINATION TYPE: CT lumbar spine wo con CT DLP: 2282.6 mGycm, Automated exposure control for dose reduction was used. DATE OF EXAM: 01/28/2025 11:35 PM COMPARISON: Fluoroscopic images 01/28/2025, lumbar spine radiograph 12/29/2014, at outside institution MRI lumbar spine 01/04/2025, outside institution CT lumbar spine 12/28/2024. CLINICAL INDICATION:Male, 50 years old with history of s/p L5-S1 MIS PLIF; [facility], POST OP L5-S1, pain TECHNIQUE: Multiple axial images were obtained from the midportion of T11 through the sacroiliac liset nts. Soft tissue and bone windows in coronal and sagittal planes were obtained and reviewed. Contrast used: none. Oral contrast used: none. FINDINGS: There are 5 lumbar type vertebral bodies identified with normal alignment. Postsurgical changes with bilateral pedicular screws and rods with intervertebral disc cage involving L5-S1. Hardware creates s treak artifact which limits evaluation. Left-sided laminectomy defect at L5-S1. Hardware appears inta ct and in appropriate position. No periprosthetic lucency identified. There is expected edema. Expect ed soft tissue gas and fat stranding identified with posterior back skin ashleigh identified. No discr ete fluid collection demonstrated. No acute fracture or dislocation. Discs: T12-L1: No spinal canal or neural foraminal stenosis is identified. L1-L2: No spinal canal or neural foraminal stenosis is identified. L2-L3: Broad-based disc bulge with minimal effacement of the anterior thecal sac. Minimal central can al stenosis. No significant neuroforaminal stenosis. L3-L4: Broad-based disc bulge with minimal effacement of the anterior thecal sac. Minimal central can al stenosis. No significant neuroforaminal stenosis. L4-L5: Broad-based disc bulge with minimal effacement of the anterior thecal sac. Minimal central can al stenosis. No significant neuroforaminal stenosis. L5-S1: Postsurgical changes without gross evidence for significant spinal canal or neural foraminal s tenosis. Other: None IMPRESSION: Post surgical changes from posterior fusion at L5-S1. Hardware appears intact with appropriate alignm ent. No CT evidence for complication. [facility], , 01/29/2025 12:12 AM
[2025-01-29] MEDS: ACETAMINOPHEN TAB 325 MG TAB PO SCH (00:27)
[2025-01-29] MEDS: ceFAZolin 3 GM in SODIUM CHLORIDE 0.9% 100 ML IVPB SCH (00:31)
[2025-01-29] MEDS: diazePAM 5 MG TAB PO STA (02:07)
[2025-01-29 06:06] LABS: Glucose,Whole Blood 200 mg/dL (70-110)
[2025-01-29] MEDS ORDERED: ONDANSETRON 4 MG/2 ML VIAL IVP PRN (07:00)
[2025-01-29 08:24] LABS: Basophils # (A) 0.03 X 10*3/uL (0.00-0.10); Basophils % (A) 0.2 %; Eosinophils # (A) 0.01 X 10*3/uL (0.04-0.35); Eosinophils % (A) 0.1 %; HCT 37.2 % (39.6-50.0); HGB 12.2 g/dL (13.0-17.0); Lymphocytes # (A) 1.13 X 10*3/uL (0.90-5.00); MCH 30.3 pg (27.0-32.0); MCHC 32.8 g/dL (32.0-37.0); MCV 92.5 FL (80.0-97.0); Monocytes # (A) 1.25 X 10*3/uL (0.20-1.00); NRBC Per 100 WBC 0 X 10*3/uL (0.00-0.01); Neutrophils % (A) 80.1 %; Platelet Count 296 X 10*3/uL (140-440); RBC 4.02 X 10*6/uL (4.40-5.60); RDW 13.8 % (11.5-14.5)
[2025-01-29 08:31] LABS: BUN/Creat Ratio 16.25 Ratio (12.00-20.00); Calcium 8.8 mg/dL (8.7-10.3); Carbon Dioxide 24.3 mmol/L (21.6-31.8); Chloride 103 mmol/L (96-109); Glucose 186 mg/dL (70-110); Potassium 3.7 mmol/L (3.5-5.5); Sodium 138 mmol/L (135-145)
[2025-01-29] MEDS: GABAPENTIN 300 MG CAP PO SCH (08:31)
[2025-01-29] MEDS: oxyCODONE-APAP 7.5-325MG 1 EACH TAB PO PRN (08:42)
--- NOTE | 2025-01-29 09:09 | P.PN ---
Subjective Progress Note Date: 01/29/25 Principal diagnosis: 1. L5-S1 MASSIVE HNP WITH SEVERE STENOSIS 2. IMPENDING CAUDA EQUINA 3. SADDLE ANESTHESIA 4. LLE RADICULOPATY, SEVERE 5. LE WEAKNESS Patient was seen at bedside this morning lying in summary, position on 4 S. with Almendarez in place and postoperative bulky dressing in place over lumbar spine. Patient says he did go for CT scan late last night and after the CT scan was in a lot of pain and having pain down the left lower extremity with numbness and tingling. Patient says this morning he does have a great relief of pain on the left lower extremity and does not have any significant numbness or tingling. He is mostly complaining of pain in the low back at this time. He says he is looking forward to working with therapy later this morning. He denies any other issues at this time. Objective - Vital Signs Vital signs: Vital Signs Temp 98.8 F 01/29/25 07:48 Pulse 114 H 01/29/25 07:48 Resp 18 01/29/25 07:48 BP 116/67 01/29/25 07:48 Pulse Ox 97 01/29/25 01:24 FiO2 Intake & Output 01/28/25 01/29/25 01/29/25 18:59 06:59 18:59 Intake Total 1600 600 Output Total 1885 Balance 1600 -1285 Weight 131.542 kg 131.542 kg Intake: IV 1600 600 Output: Urine 1730 Estimated Blood Loss 155 Other: Voiding Method Indwelling Catheter # Voids 2 - Exam Inspection: Negative for any open fractures, significant erythema/ecchymosis or open wounds. Sensation: Sensation is improving along L5-S1 dermatome in the left lower extremity. Sensation is equal, symmetric, bilat intact throughout the rest of the upper and lower extremities. Palpation: Moderate tenderness to palpation over the back near incisions. Nontender on rest of exam. Range of motion: Patient does have limited range of motion left lower extremity and hip and knees secondary referred pain to the low back. Full range of motion throughout the right lower extremity and bilateral upper extremities on exam. Motor: 4-/5 in resisted flexion/tension of the left hip and left knee. 4+/5 in right lower extremity and bilateral upper extremities. Neurovascular: Radial pulses intact, 2+ bilaterally. Cap refill under 3 seconds in digits of upper extremities. Special test: Negative Adiel bilaterally. Negative clonus bilaterally. Negative Homans bilaterally. - Labs CBC & Chem 7: 01/29/25 05:43 01/29/25 05:43 Labs: Abnormal Lab Results - Last 24 Hours (Table) 01/28/25 01/28/25 01/28/25 Range/Units 11:10 21:11 22:07 WBC (4.50-10.00) X 10*3/uL RBC (4.40-5.60) X 10*6/uL Hgb (13.0-17.0) g/dL Hct (39.6-50.0) % MPV (9.5-12.2) FL Immature Gran # (0.00-0.04) X 10*3/uL Neutrophils # (1.80-7.70) X 10*3/uL Monocytes # (0.20-1.00) X 10*3/uL Eosinophils # (0.04-0.35) X 10*3/uL Glucose (70-110) mg/dL POC Glucose (mg/dL) 151 H 210 H 209 H (70-110) mg/dL 01/29/25 01/29/25 01/29/25 Range/Units 05:43 05:43 06:04 WBC 12.50 H (4.50-10.00) X 10*3/uL RBC 4.02 L (4.40-5.60) X 10*6/uL Hgb 12.2 L (13.0-17.0) g/dL Hct 37.2 L (39.6-50.0) % MPV 9.0 L (9.5-12.2) FL Immature Gran # 0.08 H (0.00-0.04) X 10*3/uL Neutrophils # 10.00 H (1.80-7.70) X 10*3/uL Monocytes # 1.25 H (0.20-1.00) X 10*3/uL Eosinophils # 0.01 L (0.04-0.35) X 10*3/uL Glucose 186 H (70-110) mg/dL POC Glucose (mg/dL) 200 H (70-110) mg/dL Assessment and Plan Assessment: 1. L5-S1 MASSIVE HNP WITH SEVERE STENOSIS 2. IMPENDING CAUDA EQUINA 3. SADDLE ANESTHESIA 4. LLE RADICULOPATY, SEVERE 5. LE WEAKNESS - Postop day 1 status post L5-S1 posterior lateral interbody fusion Plan: 1. L5-S1 MASSIVE HNP WITH SEVERE STENOSIS; IMPENDING CAUDA EQUINA; SADDLE ANESTHESIA; LLE RADICULOPATY, SEVERE; LE WEAKNESS - L5-S1 posterior lateral interbody fusion surgery performed yesterday, , 01/28/2025. Patient stable bedside this morning with dressing in place over lumbar spine. Assess dressing daily. Plan for possible dressing change tomorrow. Pain medication as needed. Weightbearing as tolerated with walker and assistance. Work with PT/OT daily. Discharge planning pending 2. Appreciate medical management 3. Pain management -Percocet; gabapentin; baclofen 4. GI prophylaxis -senna; milk of mag 5. DVT prophylaxis -mechanical 6. PT/OT -weight-bear as tolerated with walker and assistance 7. Encourage incentive spirometer use 8. Discharge planning -pending Time with Patient: Less than 30
[2025-01-29] MEDS: HYDROcodone/APAP 10-325MG 1 EACH TAB PO PRN (10:47)
[2025-01-29 11:29] LABS: Glucose,Whole Blood 280 mg/dL (70-110)
[2025-01-29 16:40] LABS: Glucose,Whole Blood 172 mg/dL (70-110)
[2025-01-29 20:21] LABS: Glucose,Whole Blood 219 mg/dL (70-110)
[2025-01-29] MEDS: TEMAZEPAM 7.5 MG CAP PO PRN (21:54)
[2025-01-30 06:12] LABS: Glucose,Whole Blood 136 mg/dL (70-110)
[2025-01-30] MEDS: NON FORMULARY DRUG (Dulaglutide [Trulicity] 1.5 MG/0.5 ML Each) SQ SCH (07:40)
--- NOTE | 2025-01-30 07:41 | P.PN ---
Subjective Progress Note Date: 01/29/25 Patient is 50-year-old male came in with severe back pain in the lower back in the lumbosacral area with crampy and tingling numbness radiating to the left buttock and posterior thigh. Patient denies any weakness patient is unable to ambulate. Patient had an MRI which showed disc bulge as per the . Patient was evaluated by final surgeon Dr. Cobb and patient apparently will be going for surgery tomorrow for lower back pain. Patient is presently on morphine which will be continued. Patient is mildly hypotensive does use lisinopril hydrochlorothiazide as an outpatient which will be held. 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 01/29/2025 Patient is seen in follow-up today status post L5-S1 posterior lateral interbody fusion and is currently up in a 35 degree angle in the bed today. Patient is reporting working on pain management and attempting to avoid IV narcotics. Patient is reporting had a brief episode of intense severe pain with spasms yesterday while attempting to position change in the evening to go for CT scan of the lumbar. Patient reporting he is not sleeping very well and will add low- dose as needed insomnia support. Patient is afebrile with no reports of chest pain or shortness of breath. Would recommend limiting IV fluids if patient is eating and drinking and tolerating and encourage incentive spirometer use. Patient is afebrile denies chest pain or palpitations. Patient reports passing some gas with no bowel movement as of yet and patient continues with indwelling Almendarez catheter and is scheduled to be removed. Recommend to continue with bowel regimen as well. Review of systems: Constitutional: No reports of fatigue, fever, or chills Cardiovascular: No reports of chest pain or palpitations Respiratory: No reports of shortness of breath or cough GI: No reports of nausea, vomiting, or diarrhea : No reports of dysuria or retention Neurovascular: No reports of weakness or numbness All medications have been reviewed All other systems are negative except those mentioned in the HPI PHYSICAL EXAMINATION: GENERAL: The patient is alert and oriented x3, not in any acute distress. Well developed, well nourished. HEENT: Pupils are round and equally reacting to light. EOMI. No scleral icterus. No conjunctival pallor. Normocephalic, atraumatic. No pharyngeal erythema. No thyromegaly. CARDIOVASCULAR: S1 and S2 present. No murmurs, rubs, or gallops. PULMONARY: Diminished breath sounds bilaterally otherwise chest is clear to auscultation, no wheezing or crackles. ABDOMEN: Soft, obese, nontender, nondistended, normoactive bowel sounds. No palpable organomegaly. MUSCULOSKELETAL: No joint swelling or deformity. Back pain deferred to orthopedic surgery EXTREMITIES: No cyanosis, clubbing, or pedal edema. NEUROLOGICAL: Gross neurological examination did not reveal any focal deficits. Diffusely weak SKIN: No rashes. Assessment: -Chronic back pain: Secondary to severe degenerative disc disease. Status post L5-S1 posterior lateral interbody fusion - Hypertension history -Obesity with a BMI of 39.3 - Type 2 diabetes mellitus, uncontrolled with hyper and hypoglycemia -History of depression - GI prophylaxis -DVT prophylaxis: Patient will need DVT prophylaxis pharmacologically we will start him on Lovenox or subcutaneous heparin after surgery. - Full code Plan: Patient evaluated by orthopedic surgery and is status post L5-S1 posterior lateral interbody fusion with Dr. Cobb Working with physical therapy and will continue pain regimen and DVT prophylaxis per surgery Encouraged incentive spirometer use at least 10 times every hour while awake Continue monitoring Accu-Cheks AC and at bedtime and will use sliding scale and adjust insulins accordingly Recommend bowel regimen as needed. Almendarez was removed today and awaiting to void Recommend PT/OT therapy daily Patient is reporting not sleeping well and will add low-dose medication as needed Per orthopedics, anticipate possible discharge planning in the next 24 to 48 hours The impression and plan of care has been dictated by Denia Todd, Nurse Practitioner as directed. Dr. Kulwant MD I have performed a history and examination and MDM of this patient, discussed the same with the dictator, and agree with the dictator's assessment and plan as written ,documented as a scribe. Based on total visit time, I have performed more than 50% of the visit. Objective - Vital Signs Vital signs: Vital Signs Temp 98.8 F 01/29/25 07:48 Pulse 114 H 01/29/25 07:48 Resp 18 01/29/25 07:48 BP 116/67 01/29/25 07:48 Pulse Ox 97 01/29/25 01:24 FiO2 Intake & Output 01/28/25 01/29/25 01/29/25 18:59 06:59 18:59 Intake Total 1600 600 Output Total 1885 Balance 1600 -1285 Weight 131.542 kg 131.542 kg Intake: IV 1600 600 Output: Urine 1730 Estimated Blood Loss 155 Other: Voiding Method Indwelling Catheter # Voids 2 - Labs CBC & Chem 7: 01/29/25 05:43 01/29/25 05:43 Labs: Abnormal Lab Results - Last 24 Hours (Table) 01/28/25 01/28/25 01/28/25 Range/Units 11:10 21:11 22:07 WBC (4.50-10.00) X 10*3/uL RBC (4.40-5.60) X 10*6/uL Hgb (13.0-17.0) g/dL Hct (39.6-50.0) % MPV (9.5-12.2) FL Immature Gran # (0.00-0.04) X 10*3/uL Neutrophils # (1.80-7.70) X 10*3/uL Monocytes # (0.20-1.00) X 10*3/uL Eosinophils # (0.04-0.35) X 10*3/uL Glucose (70-110) mg/dL POC Glucose (mg/dL) 151 H 210 H 209 H (70-110) mg/dL 01/29/25 01/29/25 01/29/25 Range/Units 05:43 05:43 06:04 WBC 12.50 H (4.50-10.00) X 10*3/uL RBC 4.02 L (4.40-5.60) X 10*6/uL Hgb 12.2 L (13.0-17.0) g/dL Hct 37.2 L (39.6-50.0) % MPV 9.0 L (9.5-12.2) FL Immature Gran # 0.08 H (0.00-0.04) X 10*3/uL Neutrophils # 10.00 H (1.80-7.70) X 10*3/uL Monocytes # 1.25 H (0.20-1.00) X 10*3/uL Eosinophils # 0.01 L (0.04-0.35) X 10*3/uL Glucose 186 H (70-110) mg/dL POC Glucose (mg/dL) 200 H (70-110) mg/dL
[2025-01-30 07:48] VITALS: BP 117/75; PULSE 89; RESP 17; TEMP 98.5
[2025-01-30 11:21] LABS: Glucose,Whole Blood 224 mg/dL (70-110)
--- NOTE | 2025-01-30 11:33 | P.DS ---
Providers Date of admission: 01/26/25 17:23 Expected date of discharge: 01/30/25 Attending physician: Marlon Jack Consults: 01/26/25 17:22 Consult Physician Routine Consulting Provider: Kiel Cobb Consult Reason/Comments: back pain Do you want consulting provider notified?: Yes Primary care physician: Trupti Flowers Hospital Course: Date of admission: 01/27/2025 Date of discharge: 01/30/2025 Admission diagnosis: 1. L5-S1 MASSIVE HNP WITH SEVERE STENOSIS 2. IMPENDING CAUDA EQUINA 3. SADDLE ANESTHESIA 4. LLE RADICULOPATY, SEVERE 5. LE WEAKNESS Discharge diagnosis: Same Attending physician: Dr. Cobb Surgical procedures: L5-S1 posterior lateral interbody fusion Brief history: Patient is a 50-year-old male with a history of L5-S1 massive herniated nucleus pulposus with severe stenosis; impending cauda equina; 7 seizures; left lower extremity radiculopathy and left lower extremity weakness. At this point patient has failed conservative treatment measures and has opted to proceed with a elective L5-S1 posterior lateral interbody fusion. Hospital course: Details of patient's surgery can be found in operative report. Patient tolerated the procedure well and was subsequently transported to orthopedic floor. Patient's orthopeidc and medical care was provided daily. Patient had daily laboratory tests performed for evaluation of overall blood counts. Patient had daily physical therapy to include strengthening range of motion as well as education with walker ambulation. Patient was noted to have a relatively uneventful postoperative course. Patient reported satisfactory pain control with oral pain medications by postoperative day 2. Patient showed satisfactory progress with physical therapy. Patient moved steadily through the program and had no difficulty meeting the goals by postoperative day 2. Given patient's otherwise satisfactory course and having met physical therapy goals, plan is to discharge patient home with home care on postoperative day 2. Discharge condition/disposition: Patient will be discharged home with home care in stable condition. Discharge medications: Instructions are given on resumption of patient's normal daily medications per primary care recommendation, in addition patient will be prescribed Percocet; senna; gabapentin; Duricef Spine Discharge and Recovery Instructions Date of Surgery: 01/28/2025 Diagnosis: 1. L5-S1 MASSIVE HNP WITH SEVERE STENOSIS 2. IMPENDING CAUDA EQUINA 3. SADDLE ANESTHESIA 4. LLE RADICULOPATY, SEVERE 5. LE WEAKNESS Procedure(s) Performed: 1. L5-S1 POSTEROLATERAL AND INTERBODY FUSION Medications: See medication list All medication refills should be obtained through your primary care doctor or your clinic spine surgeon. Please discuss prescription refills at your follow up appointment. Do not call the hospital for medication refills. Dressing: Leave your dressing in place for a total of 5 days post operatively. Then you may remove your dressing and leave open to air. Keep the area clean and if not able to keep area clean, then cover with sterile gauze and tape. Showering: You may shower 3 days after your procedure allowing soap and water to run over incision. Do not scrub. Do not soak. Blot dry. Follow up: Please confirm a follow up appointment with your surgeon 3 weeks post operatively. Please make an appointment to follow up with your PCP in 1-2 weeks after surgery for evaluation '3 phase, 3-week plan' POST OP WEEKS 1-3 1. Lifting/carrying/pushing/pulling limited to less than 5 pounds. 2. Do not sit for longer than 15 minutes at one time. Get up and walk around. Prolonged sitting is NOT advised. If you lay down, see if you can tolerate laying down on you front (belly side) 3. Walk for periods of 15 minutes = 1 mile but no longer; do it multiple times times each day. 4. Ice your low back after activity. POST OP WEEKS 3-6 1. Lifting limited to less than 20 pounds. 2. Do not sit for longer than 30 minutes at a time. Frequently change positions. Use a sit-to stand workstation or take frequent breaks from sitting if you have returned to work. 3. Walk for 30 minutes each day. If possible, do these three or more times a day POST OP WEEKS 6+ At your 6-week appointment we will give you a physical therapy referral to focus on a core stabilization and strengthening program. You should also work on leg & buttock strengthening, hamstring & quadriceps stretching, and continue a low impact aerobic activity program such as swimming, walking, or riding a stationary bicycle. During the initial 6 weeks after your surgery, you are at the highest risk of re-injuring your spine. You should generally avoid BLT's (bending, lifting and twisting combination motions) and follow the above guidelines to reduce the chance of reinjury. You can anticipate post op appointments in our office at approximately 3 weeks and 6 weeks after your surgery. INCISION CARE: If your incision is not draining you do NOT need to cover it with a dressing. Keep your incision clean, dry and intact. In most cases, we apply skin glue, ashleigh or sutures to the incision at the time of surgery. This will be like a crust or have the appearance of a scab and will fall off in time on its own. The stitches or ashleigh need to be removed at 3 weeks post op appointment. You may begin to shower 3 days after surgery (this allows the glue to ubrton well). However, please avoid scrubbing the incision site or peeling off any of the skin glue. This will ensure optimal healing of your incision. Also, during this time avoid soaking the incision area in water - this includes swimming pools, hot tubs or baths. No ointments, lotions or oils on the incision until your surgeon allows. Leave ashleigh, sutures or glue in place. Neurological dysfunction that comes on suddenly can also be a sign of a stroke. Below some common symptoms of a stroke are listed: B - balance difficulty such as sudden onset walking or leaning to one side - NEW E - eye problem such as sudden double vision or trouble seeing on one side - NEW F - Facial weakness or numbness on one side - NEW A - Arm or leg weakness or numbness on one side - NEW S - Slurred speech or difficulty with word finding - NEW T - Time is BRAIN! Call 911 as soon as you recognize these symptoms Diet: Consume a regular diet rich in vegetables and lean protein such as chicken or fish. You should consume in a ratio of approximately 20% fats|40% carbohydrates|40%protein. Vegetables, sweet potatoes, brown rice or quinoa are examples of good carbohydrates. Chips, white bread, cookies and sweets/sugar are examples of bad carbohydrates. Limit your bad carbs, go wild with good carbs. "Life's Simple 7" Guidelines as per [place] [employer] These will help you reclaim your life after surgery and shipyard helper in your recovery, keeping in mind your restrictions. (1) Get Active. Physical activity can help people lose weight, control high blood pressure and cholesterol, feel emotionally better, and sleep better. (2) Control Cholesterol. Avoid a diet high in saturated fat, trans fat, & cholesterol. Limit whole milk & cream, ice cream, butter, egg yolks, processed meats (like sausage and hot dogs), and fatty meats. Choose healthy foods that are low in saturated fat, trans fat and cholesterol which include: Fruits and vegetables, fiber rich grain products (like whole grain pasta and brown rice), lean meat such as chicken, fish, nuts, seeds, and legumes. (3) Eat Better. Eat small portions. Shop at the grocery with a list and do not stray from it. Tips for a healthy diet include: Limit sodium intake to less than 1500mg daily, avoid prepackaged, processed, and fast foods, choose a diet rich in fruits, vegetables, and whole grain, high fiber foods, and limit saturated & cholesterol in your diet. (4) Manage Blood Pressure. If you have high blood pressure, you should have a cuff at home so that you can check your blood pressure regularly. Be sure you have a good cuff. An arm one is generally better than a wrist one. Bring the cuff to a doctor's appointment to validate that the measurements that your cuff are taking are accurate. Take your blood pressure twice daily when you are sitting down and relaxing. Record the numbers in a log and bring this log with you to your doctors' appointments. (5) Lose Weight if your BMI is above 25. A healthy BMI is between 19-25. To calculate Your BMI, you may use a Standard BMI Calculator on the NIH BMI website: <www.nhlbi.nih.gov/guidelines/obesity/BMI/bmicalc.htm>. Weigh oneself daily. If you are overweight, set a goal to lose weight. A pound a week loss if needed is a good target. (6) Reduce Blood Sugar. Limit foods and liquids with "added sugars." (Added sugars include sucrose, fructose, glucose, maltose, dextrose, high fructose corn syrup, corn syrup, concentrated fruit juice and honey). (7) Stop Smoking. If you smoke, quitting smoking is one of the best things that you can do for your health. Smoking increases your risk of heart attack, stroke, and peripheral vascular disease, which is a build-up of plaque in your arteries. Please discard all the cigarettes and lighters in your house. Have a plan for what you will do when you have the urge to smoke. Direct and second- hand smoke shortens your life as well as the lives of your family, friends and others around you. For your health and the health of those around you, please consider quitting! Proper Bending Body Mechanics: Maintain a wide stance with one foot slightly in front of the other. Keep your back straight. Bend utilizing the strength in your hips and knees. Do not bend at the waist. Maintain the lifted object at your waist-level close to your body. Avoid lifting weight that causes immediately pain or pain anywhere in the body afterwards. Smoking/Nicotine If there was ever one thing that you could do to increase your overall health, decrease your risk of cardiovascular problems by about 39% the second you make the choice, it is to STOP SMOKING. Your body's most instant gratification is the second you stop smoking. We have all heard the studies, read the articles but it is true, smoking is extremely bad for your overall health, and moreover it is detrimental to your bone health. Nicotine, IN ANY FORM, kills bone cells, prevents your body from healing fractures, and significantly prolongs healing after surgery. In spine surgery specifically, it increases your risk of not healing your bones to create a fusion and increases your risk of having a revision surgery due to this up to 60%. I know it is hard. I know it feels impossible. But there are ways. Take control of your life. We are here to help you through it. And when you are ready, ask us and we can direct you to help if you desire. Use the START Plan to Quit Smoking (please visit the Helpguide.org website listed below for more information): S = Set a quit date. Choose a date within the next 2 weeks, so you have enough time to prepare without losing your motivation to quit. If you mainly smoke at work, quit on the weekend, so you have a few days to adjust to the change. T = Tell family, friends, and co-workers that you plan to quit. Let your friends and family in on your plan to quit smoking and tell them you need their support and encouragement to stop. Look for a quit gino who wants to stop smoking as well. You can help each other get through the rough times. A = Anticipate and plan for the challenges you'll face while quitting. Most people who begin smoking again do so within the first 3 months. You can help yourself make it through by preparing ahead for common challenges, such as nicotine withdrawal and cigarette cravings. R = Remove cigarettes and other tobacco products from your home, car, and work. Throw away all your cigarettes (no emergency pack!), lighters, ashtrays, and matches. Wash your clothes and freshen up anything that smells like smoke. Shampoo your car, clean your drapes and carpet, and steam your furniture. T = Talk to your doctor about getting help to quit. Your doctor can prescribe medication to help with withdrawal and suggest other alternatives. If you can't see a doctor, you can get many products over the coun ter at your local pharmacy or grocery store, including the nicotine patch, nicotine lozenges, and nicotine gum. Resources for Quitting Smoking: <https://www.[place].gov/documents/[facility]/Quit_Tob acco_Resources_for_patients_313480_7.pdf> Supplementation: Take recommended dosages of Vitamin D and Calcium to help fortify your bones and help them to heal. See your health maintenance packet for dosages and recommended levels. DVT/VTE prophylaxis: You will be given compression stockings from the hospital. Wear these daily for the first two weeks after surgery. You may take them off at night. You may be prescribed a medication to help thin your blood. Take this as directed. If you are not prescribed this medication, early and frequent ambulation has been shown to be the best prophylaxis to deep vein thrombosis and sequelae related to this event. Assessment: 1. L5-S1 MASSIVE HNP WITH SEVERE STENOSIS 2. IMPENDING CAUDA EQUINA 3. SADDLE ANESTHESIA 4. LLE RADICULOPATY, SEVERE 5. LE WEAKNESS Procedures: 1. L5-S1 POSTEROLATERAL AND INTERBODY FUSION Patient Condition at Discharge: Good Plan - Discharge Summary New Discharge Prescriptions: New Gabapentin [Neurontin] 300 mg PO TID #30 cap cefaDROXiL [Duricef] 500 mg PO Q12HR 5 Days #10 cap oxyCODONE-APAP 5-325MG [Percocet 5-325 mg] 1 tab PO Q6HR PRN #28 tab PRN Reason: Pain Sennosides/Docusate Sodium [Senna Plus 8.6-50 mg Softgel] 1 each PO DAILY #20 capsule Continue Baclofen [Lioresal] 20 mg PO BID PRN PRN Reason: Muscle Spasm Discontinued HYDROcodone/APAP 7.5-325MG [[place] 7.5-325] 1 - 2 tab PO Q6H PRN PRN Reason: Pain No Action Pioglitazone HCl/Glimepiride [Pioglitazone-Glimepiride 30-4] 1 tab PO DAILY Gabapentin 300 mg PO BID PRN PRN Reason: Pain Vitamin B Complex 1 cap PO DAILY Lisinopril-Hctz 20-25 mg [Zestoretic 20-25] 1 tab PO DAILY Aspirin EC [Ecotrin Low Dose] 81 mg PO DAILY Simvastatin [Zocor] 20 mg PO DAILY DULoxetine HCL [Cymbalta] 60 mg PO DAILY Mv-Min/Folic/K1/Lycopen/Lutein [Centrum Silver Men Tablet] 1 tab PO DAILY Dulaglutide [Trulicity] 1.5 mg SQ SA Discharge Medication List Aspirin EC [Ecotrin Low Dose] 81 mg PO DAILY 01/26/25 [History] Baclofen [Lioresal] 20 mg PO BID PRN 01/26/25 [History] DULoxetine HCL [Cymbalta] 60 mg PO DAILY 01/26/25 [History] Dulaglutide [Trulicity] 1.5 mg SQ SA 01/26/25 [History] Gabapentin 300 mg PO BID PRN 01/26/25 [History] Lisinopril-Hctz 20-25 mg [Zestoretic 20-25] 1 tab PO DAILY 01/26/25 [History] Mv-Min/Folic/K1/Lycopen/Lutein [Centrum Silver Men Tablet] 1 tab PO DAILY 01/26/25 [History] Pioglitazone HCl/Glimepiride [Pioglitazone-Glimepiride 30-4] 1 tab PO DAILY 01/26/25 [History] Simvastatin [Zocor] 20 mg PO DAILY 01/26/25 [History] Vitamin B Complex 1 cap PO DAILY 01/26/25 [History] Gabapentin [Neurontin] 300 mg PO TID #30 cap 01/30/25 [Rx] Sennosides/Docusate Sodium [Senna Plus 8.6-50 mg Softgel] 1 each PO DAILY #20 capsule 01/30/25 [Rx] cefaDROXiL [Duricef] 500 mg PO Q12HR 5 Days #10 cap 01/30/25 [Rx] oxyCODONE-APAP 5-325MG [Percocet 5-325 mg] 1 tab PO Q6HR PRN #28 tab 01/30/25 [Rx] Follow up Appointment(s)/Referral(s): Trupti Flowers DO [Primary Care Provider] - 1-2 days Kiel Cobb DO [Doctor of Osteopathic Medicine] - 2 Weeks Patient Instructions/Handouts: Lumbar Spinal Fusion (DC) Activity/Diet/Wound Care/Special Instructions: Spine Discharge and Recovery Instructions Date of Surgery: 01/28/2025 Diagnosis: 1. L5-S1 MASSIVE HNP WITH SEVERE STENOSIS 2. IMPENDING CAUDA EQUINA 3. SADDLE ANESTHESIA 4. LLE RADICULOPATY, SEVERE 5. LE WEAKNESS Procedure(s) Performed: 1. L5-S1 POSTEROLATERAL AND INTERBODY FUSION Medications: See medication list All medication refills should be obtained through your primary care doctor or your clinic spine surgeon. Please discuss prescription refills at your follow up appointment. Do not call the hospital for medication refills. Dressing: Leave your dressing in place for a total of 5 days post operatively. Then you may remove your dressing and leave open to air. Keep the area clean and if not able to keep area clean, then cover with sterile gauze and tape. Showering: You may shower 3 days after your procedure allowing soap and water to run over incision. Do not scrub. Do not soak. Blot dry. Follow up: Please confirm a follow up appointment with your surgeon 3 weeks post operatively. Please make an appointment to follow up with your PCP in 1-2 weeks after surgery for evaluation '3 phase, 3-week plan' POST OP WEEKS 1-3 1. Lifting/carrying/pushing/pulling limited to less than 5 pounds. 2. Do not sit for longer than 15 minutes at one time. Get up and walk around. Prolonged sitting is NOT advised. If you lay down, see if you can tolerate laying down on you front (belly side) 3. Walk for periods of 15 minutes = 1 mile but no longer; do it multiple times times each day. 4. Ice your low back after activity. POST OP WEEKS 3-6 1. Lifting limited to less than 20 pounds. 2. Do not sit for longer than 30 minutes at a time. Frequently change positions. Use a sit-to stand workstation or take frequent breaks from sitting if you have returned to work. 3. Walk for 30 minutes each day. If possible, do these three or more times a day POST OP WEEKS 6+ At your 6-week appointment we will give you a physical therapy referral to focus on a core stabilization and strengthening program. You should also work on leg & buttock strengthening, hamstring & quadriceps stretching, and continue a low impact aerobic activity program such as swimming, walking, or riding a stationary bicycle. During the initial 6 weeks after your surgery, you are at the highest risk of re-injuring your spine. You should generally avoid BLT's (bending, lifting and twisting combination motions) and follow the above guidelines to reduce the chance of reinjury. You can anticipate post op appointments in our office at approximately 3 weeks and 6 weeks after your surgery. INCISION CARE: If your incision is not draining you do NOT need to cover it with a dressing. Keep your incision clean, dry and intact. In most cases, we apply skin glue, ashleigh or sutures to the incision at the time of surgery. This will be like a crust or have the appearance of a scab and will fall off in time on its own. The stitches or ashleigh need to be removed at 3 weeks post op appointment. You may begin to shower 3 days after surgery (this allows the glue to burton well). However, please avoid scrubbing the incision site or peeling off any of the skin glue. This will ensure optimal healing of your incision. Also, during this time avoid soaking the incision area in water - this includes swimming pools, hot tubs or baths. No ointments, lotions or oils on the incision until your surgeon allows. Leave ashleigh, sutures or glue in place. Neurological dysfunction that comes on suddenly can also be a sign of a stroke. Below some common symptoms of a stroke are listed: B - balance difficulty such as sudden onset walking or leaning to one side - NEW E - eye problem such as sudden double vision or trouble seeing on one side - NEW F - Facial weakness or numbness on one side - NEW A - Arm or leg weakness or numbness on one side - NEW S - Slurred speech or difficulty with word finding - NEW T - Time is BRAIN! Call 911 as soon as you recognize these symptoms Diet: Consume a regular diet rich in vegetables and lean protein such as chicken or fish. You should consume in a ratio of approximately 20% fats|40% carbohydrates|40%protein. Vegetables, sweet potatoes, brown rice or quinoa are examples of good carbohydrates. Chips, white bread, cookies and sweets/sugar are examples of bad carbohydrates. Limit your bad carbs, go wild with good carbs. "Life's Simple 7" Guidelines as per [place] [employer] These will help you reclaim your life after surgery and shipyard helper in your recovery, keeping in mind your restrictions. (1) Get Active. Physical activity can help people lose weight, control high blood pressure and cholesterol, feel emotionally better, and sleep better. (2) Control Cholesterol. Avoid a diet high in saturated fat, trans fat, & cholesterol. Limit whole milk & cream, ice cream, butter, egg yolks, processed meats (like sausage and hot dogs), and fatty meats. Choose healthy foods that are low in saturated fat, trans fat and cholesterol which include: Fruits and vegetables, fiber rich grain products (like whole grain pasta and brown rice), lean meat such as chicken, fish, nuts, seeds, and legumes. (3) Eat Better. Eat small portions. Shop at the grocery with a list and do not stray from it. Tips for a healthy diet include: Limit sodium intake to less than 1500mg daily, avoid prepackaged, processed, and fast foods, choose a diet rich in fruits, vegetables, and whole grain, high fiber foods, and limit saturated & cholesterol in your diet. (4) Manage Blood Pressure. If you have high blood pressure, you should have a cuff at home so that you can check your blood pressure regularly. Be sure you have a good cuff. An arm one is generally better than a wrist one. Bring the cuff to a doctor's appointment to validate that the measurements that your cuff are taking are accurate. Take your blood pressure twice daily when you are sitting down and relaxing. Record the numbers in a log and bring this log with you to your doctors' appointments. (5) Lose Weight if your BMI is above 25. A healthy BMI is between 19-25. To calculate Your BMI, you may use a Standard BMI Calculator on the NIH BMI website: <www.nhlbi.nih.gov/guidelines/obesity/BMI/bmicalc.htm>. Weigh oneself daily. If you are overweight, set a goal to lose weight. A pound a week loss if needed is a good target. (6) Reduce Blood Sugar. Limit foods and liquids with "added sugars." (Added sugars include sucrose, fructose, glucose, maltose, dextrose, high fructose corn syrup, corn syrup, concentrated fruit juice and honey). (7) Stop Smoking. If you smoke, quitting smoking is one of the best things that you can do for your health. Smoking increases your risk of heart attack, stroke, and peripheral vascular disease, which is a build-up of plaque in your arteries. Please discard all the cigarettes and lighters in your house. Have a plan for what you will do when you have the urge to smoke. Direct and second- hand smoke shortens your life as well as the lives of your family, friends and others around you. For your health and the health of those around you, please consider quitting! Proper Bending Body Mechanics: Maintain a wide stance with one foot slightly in front of the other. Keep your back straight. Bend utilizing the strength in your hips and knees. Do not bend at the waist. Maintain the lifted object at your waist-level close to your body. Avoid lifting weight that causes immediately pain or pain anywhere in the body afterwards. Smoking/Nicotine If there was ever one thing that you could do to increase your overall health, d ecrease your risk of cardiovascular problems by about 39% the second you make the choice, it is to STOP SMOKING. Your body's most instant gratification is the second you stop smoking. We have all heard the studies, read the articles but it is true, smoking is extremely bad for your overall health, and moreover it is detrimental to your bone health. Nicotine, IN ANY FORM, kills bone cells, prevents your body from healing fractures, and significantly prolongs healing after surgery. In spine surgery specifically, it increases your risk of not healing your bones to create a fusion and increases your risk of having a revision surgery due to this up to 60%. I know it is hard. I know it feels impossible. But there are ways. Take control of your life. We are here to help you through it. And when you are ready, ask us and we can direct you to help if you desire. Use the START Plan to Quit Smoking (please visit the [employer].org website listed below for more information): S = Set a quit date. Choose a date within the next 2 weeks, so you have enough time to prepare without losing your motivation to quit. If you mainly smoke at work, quit on the weekend, so you have a few days to adjust to the change. T = Tell family, friends, and co-workers that you plan to quit. Let your friends and family in on your plan to quit smoking and tell them you need their support and encouragement to stop. Look for a quit gino who wants to stop smoking as well. You can help each other get through the rough times. A = Anticipate and plan for the challenges you'll face while quitting. Most people who begin smoking again do so within the first 3 months. You can help yourself make it through by preparing ahead for common challenges, such as nicotine withdrawal and cigarette cravings. R = Remove cigarettes and other tobacco products from your home, car, and work. Throw away all your cigarettes (no emergency pack!), lighters, ashtrays, and matches. Wash your clothes and freshen up anything that smells like smoke. Shampoo your car, clean your drapes and carpet, and steam your furniture. T = Talk to your doctor about getting help to quit. Your doctor can prescribe medication to help with withdrawal and suggest other alternatives. If you can't see a doctor, you can get many products over the counter at your local pharmacy or grocery store, including the nicotine patch, nicotine lozenges, and nicotine gum. Resources for Quitting Smoking: <https://www.[place].gov/documents/[facility]/Quit_Tobacco_Resources_for_patients_313 480_7.pdf> Supplementation: Take recommended dosages of Vitamin D and Calcium to help fortify your bones and help them to heal. See your health maintenance packet for dosages and recommended levels. DVT/VTE prophylaxis: You will be given compression stockings from the hospital. Wear these daily for the first two weeks after surgery. You may take them off at night. You may be prescribed a medication to help thin your blood. Take this as directed. If you are not prescribed this medication, early and frequent ambulation has been shown to be the best prophylaxis to deep vein thrombosis and sequelae related to this event. Discharge Disposition: HOME SELF-CARE
--- NOTE | 2025-01-30 11:36 | P.PN ---
Subjective Progress Note Date: 01/30/25 Principal diagnosis: 1. L5-S1 MASSIVE HNP WITH SEVERE STENOSIS 2. IMPENDING CAUDA EQUINA 3. SADDLE ANESTHESIA 4. LLE RADICULOPATY, SEVERE 5. LE WEAKNESS Patient was seen at bedside this morning lying in the semi-recumbent position on 4 S. with dressing present over the lumbar spine. Patient says the symptoms in his left lower extremity have resolved. He says he is mostly having low back pain at this time. He says he did work with therapy this morning and was little bit sore as he said he walked a lot yesterday. He says he has been urinating on his own since Almendarez was removed yesterday without any issue. States he has not had any bowel movement yet, however he says he has been passing gas. Patient denies any other issues and is looking forward to going home today. Objective - Vital Signs Vital signs: Vital Signs Temp 98.5 F 01/30/25 07:48 Pulse 89 01/30/25 07:48 Resp 17 01/30/25 07:48 BP 117/75 01/30/25 07:48 Pulse Ox 94 L 01/30/25 07:48 FiO2 Intake & Output 01/29/25 01/30/25 01/30/25 18:59 06:59 18:59 Output Total 820 Balance -820 Output: Urine 820 Coude 100 Other: Voiding Method Indwelling Catheter Urinal # Voids 1 - Exam Inspection: Negative for any open fractures. Dressings removed at bedside this morning. Ardara well and intact. Negative for any drainage. New dressing placed over incisions. Sensation: Sensation is improving along L5-S1 dermatome in the left lower extremity. Sensation is equal, symmetric, bilat intact throughout the rest of the upper and lower extremities. Palpation: Moderate tenderness to palpation over the back near incisions. Nonte nder on rest of exam. Range of motion: Patient does have limited range of motion left lower extremity and hip and knees secondary referred pain to the low back. Full range of motion throughout the right lower extremity and bilateral upper extremities on exam. Motor: 4-/5 in resisted flexion/tension of the left hip and left knee. 4+/5 in right lower extremity and bilateral upper extremities. Neurovascular: Radial pulses intact, 2+ bilaterally. Cap refill under 3 seconds in digits of upper extremities. Special test: Negative Adiel bilaterally. Negative clonus bilaterally. Negative Homans bilaterally. - Labs CBC & Chem 7: 01/29/25 05:43 01/29/25 05:43 Labs: Abnormal Lab Results - Last 24 Hours (Table) 01/29/25 01/29/25 01/29/25 Range/Units 11:27 16:38 20:20 POC Glucose (mg/dL) 280 H 172 H 219 H (70-110) mg/dL 01/30/25 01/30/25 Range/Units 06:10 11:20 POC Glucose (mg/dL) 136 H 224 H (70-110) mg/dL Assessment and Plan Assessment: 1. L5-S1 MASSIVE HNP WITH SEVERE STENOSIS 2. IMPENDING CAUDA EQUINA 3. SADDLE ANESTHESIA 4. LLE RADICULOPATY, SEVERE 5. LE WEAKNESS - Postop day 2 status post L5-S1 posterior lateral interbody fusion Plan: 1. L5-S1 MASSIVE HNP WITH SEVERE STENOSIS; IMPENDING CAUDA EQUINA; SADDLE ANESTHESIA; LLE RADICULOPATY, SEVERE; LE WEAKNESS - L5-S1 posterior lateral interbody fusion surgery performed , 01/28/2025. Patient stable bedside this morning with dressing in place over lumbar spine. New dressing placed over incision. Patient doing well with therapy. Pain medication as needed. Weightbearing as tolerated with walker and assistance. Work with PT/OT daily. Discharge home today with home care. 2. Appreciate medical management 3. Pain management -Percocet; gabapentin; baclofen 4. GI prophylaxis -senna; milk of mag 5. DVT prophylaxis -mechanical 6. PT/OT -weight-bear as tolerated with walker and assistance 7. Encourage incentive spirometer use 8. Discharge planning -discharge home today with home care Time with Patient: Less than 30
--- NOTE | 2025-01-30 14:03 | PN ---
PROGRESS NOTE DATE OF SERVICE: 01/30/2025 SUBJECTIVE: This is a 50-year-old gentleman who had back surgery, is improving significantly. No chest pain or palpitations. PHYSICAL EXAMINATION: VITAL SIGNS: Pulse is 87, blood pressure 170/74, and respirations 18. CHEST: Clear to auscultation. CARDIOVASCULAR: S1 and S2. ABDOMEN: Soft. BACK: Status post surgery. LABORATORY DATA: Reviewed. ASSESSMENT: 1. Chronic back pain, status post L5-S1 posterior lateral interbody fusion. 2. Hypertension. 3. Diabetes mellitus, type 2. 4. Depression. RECOMMENDATIONS AND DISCUSSION: I recommend to continue current medications and symptomatic treatment. Recommend Accu- Cheks before meal and at bedtime and close followup with Dr. Flowers, primary physician, resume home medications. Rest of the recommendations per Orthopedic Surgery. MMODL / IJN: [id number] /
== END 2025-01-30 13:51 | disposition home or self-care (01) | DRG 451 ==
LOC: EC 13:55 → 4SSUR 17:23
PROVIDERS: ADMIT Hospitalist; ATTEND Hospitalist
PROC: 0ST40ZZ Resection of Lumbosacral Disc, Open Approach (ICD-10-PCS; 2025-01-28)
PROC: 01NB0ZZ Release Lumbar Nerve, Open Approach (ICD-10-PCS; 2025-01-28)
PROC: 0SG30AJ Fusion of Lumbosacral Joint with Interbody Fusion Device, Posterior Approach, Anterior Column, Open Approach (ICD-10-PCS; principal; 2025-01-28 17:00)
DX: M51.17 Intervertebral disc disorders with radiculopathy, lumbosacral region (principal); E11.65 Type 2 diabetes mellitus with hyperglycemia; E66.9 Obesity, unspecified; F32.A Depression, unspecified; I10 Essential (primary) hypertension; Z68.39 Body mass index [BMI] 39.0-39.9, adult; G89.29 Other chronic pain; M47.26 Other spondylosis with radiculopathy, lumbar region; M48.07 Spinal stenosis, lumbosacral region; M51.26 Other intervertebral disc displacement, lumbar region; Z79.82 Long term (current) use of aspirin; Z79.899 Other long term (current) drug therapy; Z79.84 Long term (current) use of oral hypoglycemic drugs
CPT/HCPCS: 36415; 72100; 72131; 80048; 80053; 85025; 96374; 96376; 99285